=== PATIENT | female | born 2000 | race Caucasian/White ===

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

== ENCOUNTER 2020-07-13 16:50 | Outpatient (REF) | payer OTHER, SELFPAY | END 2020-07-13 17:10 | LOC: NCHCN 16:50 | PROVIDERS: PCP Nurse Practitioner Family; Visit Provider Nurse Practitioner Family | DX: R35.0 Frequency of micturition (principal) | CPT/HCPCS: 87077; 87086; 87186 ==

== ENCOUNTER 2021-07-26 15:29 | Outpatient (REF) | payer BC, SELFPAY | END 2021-07-26 15:30 | disposition home or self-care (01) | LOC: LBN 15:29 | PROVIDERS: PCP Nurse Practitioner Family; Visit Provider Nurse Practitioner Family | DX: R30.0 Dysuria (principal) | CPT/HCPCS: 87077; 87086; 87186 ==

== ENCOUNTER 2021-08-08 13:17 | Outpatient (REF) | payer BC, SELFPAY | END 2021-08-08 13:18 | disposition home or self-care (01) | LOC: LBN 13:17 | PROVIDERS: PCP Nurse Practitioner Family; Visit Provider Nurse Practitioner Family | DX: Z87.440 Personal history of urinary (tract) infections (principal) | CPT/HCPCS: 87086 ==

== ENCOUNTER 2024-08-29 13:38 | Outpatient (CLI) | payer OTHER, SELFPAY | END 2024-08-29 13:39 | disposition home or self-care (01) | PROVIDERS: PCP Nurse Practitioner Family; Visit Provider Nurse Practitioner Family | DX: R00.0 Tachycardia, unspecified (principal) | CPT/HCPCS: 93270 ==

== ENCOUNTER 2024-09-29 07:03 | Outpatient (CLI) | payer OTHER, SELFPAY ==
--- NOTE | 2024-09-29 08:46 | CER_ITS ---
Date of service: 09/29/24 Time of Service: 08:46 Cardiac Event Recorder Referring Provider:: Elsy Lozano Indications:: Tachycardia Cardiac Event Note: This is a cardiac event monitor. Patient was monitored for 14 days and 17 hour s. Rhythm throughout was sinus with an average heart rate of 82. Minimum was 49, maximum 170. There were no ventricular dysrhythmias. There was no atrial fibrillation, no high-grade AV block, no pauses greater than 3 seconds. There were no apparent patient's symptoms
== END 2024-09-29 07:04 | disposition home or self-care (01) ==
LOC: CARDOPNVT 07:03
PROVIDERS: PCP Nurse Practitioner Family; Visit Provider Internal Medicine Cardiovascular Disease
DX: R00.0 Tachycardia, unspecified (principal)